=== PATIENT | female | born 1970 | race Caucasian/White ===

== ENCOUNTER → 2016-09-05 | Outpatient (CLI) | payer OTHER ==
[2016-09-05 16:06] LABS: BUN/CREATININE RATIO 13 (0-10)
== END ==
LOC: LAB 15:09
PROVIDERS: Internal Medicine Nephrology
DX: E27.9 Disorder of adrenal gland, unspecified (principal); R53.83 Other fatigue; I10 Essential (primary) hypertension
CPT/HCPCS: 36415; 80048; 81001; 82043; 82088; 82570; 83835; 84244; 84436; 84439; 84443; 84480